=== PATIENT | male | born 1975 | race Hispanic/Latino ===

== ENCOUNTER 2025-03-13 21:14 | Emergency (ER) | payer OTHER ==
[~2025-03-13] VITALS: Ht 170.2 cm; Wt 86.6 kg
--- NOTE | 2025-03-13 21:18 | ERN ---
ED Note History of Present Illness Stated Complaint: HIGH BLOOD SUGAR Chief Complaint: Hyperglycemia Time Seen by MD: 21:16 Time Seen by Midlevel: 21:16 Dictation: Mr. Vizcarra is a 49-year-old gentleman with history of type 2 diabetes who presented to the emergency department this evening for evaluation of hyperglycemia. He states that he has been inconsistent with his medications (metformin 500 twice daily) and he checked his blood sugar and it was 400. He reports non adherence to diabetic diet during the holiday season. He states he is not sure how accurate this reading is because it is an old machine/old strips. He reports a few episodes of loose stools. He denies fever, chills, shortness of breath, cough, chest pain, palpitations, edema, abdominal pain, nausea, vomiting, hematemesis, constipation, melena, hematochezia, dysuria, headache, dizziness, or focal weakness/paresthesia differential includes uncontrolled hyperglycemia due to medication non adherence and dietary indiscretion versus metabolic complications of diabetes, including DKA or HHS, which are being evaluated. 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 EYES: Patient denies any visual symptoms. EARS, NOSE, AND THROAT: No difficulties with hearing. No symptoms of rhinitis or sore throat. CARDIOVASCULAR: Patient denies chest pains, palpitations, orthopnea and paroxysmal nocturnal dyspnea. RESPIRATORY: No dyspnea on exertion, no wheezing or cough. GI: No nausea, vomiting, diarrhea, constipation, abdominal pain, hematochezia or melena. : No urinary hesitancy or dribbling. No nocturia or urinary frequency. No abnormal urethral discharge. MUSCULOSKELETAL: No myalgias or arthralgias. NEUROLOGIC: No chronic headaches, no seizures. Patient denies numbness, tingling or weakness. PSYCHIATRIC: Patient denies problems with mood disturbance. No problems with anxiety. ENDOCRINE: Reports elevated blood glucose readings greater than 400. Reports inconsistent use of metformin. DERMATOLOGIC: Patient denies any rashes or skin changes. Initial Vital Sign VS Vital Signs Date Time Temp Pulse Resp B/P (MAP) Pulse Ox O2 Delivery O2 Flow Rate FiO2 03/13/25 21:16 98.1 109 20 145/96 98 Room Air 03/13/25 22:30 0 21 Physical Exam Dictation Vital signs: Reviewed. Afebrile Constitutional: No acute distress. Non-toxic appearing. Pleasant Head/Face: Normocephalic, atraumatic. Eyes: Periorbital areas with no swelling, redness, or edema. Lids and lashes are normal. Conjunctival injection is absent. Sclera anicteric. Pupils equal, round, reactive to light. ENT: Pinnas intact and no signs of trauma or erythema. Ear canals clear and no discharge. TMs no erythema. No nasal discharge or bleeding noted. Oropharynx with no exudate, redness, swelling, masses, exudates, or evidence of obstruction. Uvula midline. Mucous membranes slightly dry Neck: Trachea midline, no masses palpated, and no cervical lymphadenopathy. No swelling. Supple, full range of motion. Chest/Axilla: No tenderness, no crepitus, no paradoxical movement, no retractions. Cardiovascular: Regular rate, regular rhythm, no murmur, no gallops. Symmetric pulses. No peripheral edema. Tachycardic with heart rate 109. BP 145/96 Respiratory: Respirations even and unlabored. Lung sounds clear; no wheezes, rales or rhonchi. Room air SpO2 100% Gastrointestinal: Inspection is normal. No distention is appreciated. Bowel sounds are normal. No mass or organomegaly . There is no tenderness. No rebound. No rigidity. No voluntary or involuntary guarding. No Maynard's sign. Neurological: Normal speech, gross motor function intact, gross sensory function intact. No focal weakness/Paresthesia. Musculoskeletal/Extremities: All extremities have full range of motion, no pain or tenderness on palpation. Symmetric pulses. Integumentary: Intact. Skin is normal color, warm and dry. Cap refill less than 3 seconds. Results (Laboratory/Radiology) Laboratory/Radiology Laboratory Tests Test 03/13/25 21:17 03/13/25 21:25 03/13/25 21:45 Whole Blood Glucose 398 MG/DL (70-110) H White Blood Count 9.3 K/uL (4.8-10.8) Red Blood Count 5.32 MIL/uL (4.50-6.20) Hemoglobin 15.7 g/dL (14.0-18.0) Hematocrit 45.2 % (42-54) Mean Corpuscular Volume 85.0 fL (79-99) Mean Corpuscular Hemoglobin 29.5 pg (27.0-33.0) Mean Corpuscular Hemoglobin Concent 34.7 g/dL (32.0-36.0) Red Cell Distribution Width 11.6 % (11.0-15.5) Platelet Count 271 K/uL (130-400) Mean Platelet Volume 9.7 fL (7.5-10.5) Nucleated Red Blood Cells 0.0 % (0.0-0.19) Sodium Level 134 mmol/L (136-145) L Potassium Level 3.6 mmol/L (3.5-5.1) Chloride Level 100 mmol/L (101-111) L Carbon Dioxide Level 27 mmol/L (21-32) Blood Urea Nitrogen 16 mg/dL (7-18) Creatinine 1.2 mg/dL (0.5-1.3) Glomerular Filtration Rate Calc 75 mL/min (>90) Random Glucose 373 mg/dL (70-105) H Whole Blood Ketones Quantitative 0.3 mmol/L (0.0-0.6) Total Calcium 8.5 mg/dL (8.5-10.1) Urine Color COLORLESS (YELLOW) Urine Appearance CLEAR (CLEAR) Urine pH 6.0 (5.0-8.0) Urine Specific [place] 1.029 (1.001-1.031) Urine Protein NEGATIVE mg/dL (NEGATIVE) Urine Glucose (UA) >=1000 mg/dL (NEGATIVE) H Urine Ketones NEGATIVE mg/dL (NEGATIVE) Urine Occult Blood NEGATIVE (NEGATIVE) Urine Nitrate NEGATIVE (NEGATIVE) Urine Bilirubin NEGATIVE mg/dL (NEGATIVE) Urine Urobilinogen 0.2 mg/dL (0.2-1.0) Urine Leukocyte Esterase NEGATIVE Louie/uL Urine RBC None /HPF (0-1) Urine WBC 0-1 /HPF (0-1) Urine Bacteria None /HPF (None Seen) Labs Reviewed?: Yes ED Course ED Course Orders Procedure Category Date Status Time Bedside Glucose CPOE 03/13/25 Transmitted Fingerstick 21:16 Cbc Without LAB 03/13/25 Complete Differential 21:19 Basic Metabolic Panel LAB 12/26/25 Complete 21:19 Ketone Blood LAB 03/13/25 Complete Quantitative 21:19 Urinalysis Profile LAB 03/13/25 Complete 21:19 0.9%Nacl 1000ml (Ns PHA 03/13/25 Complete 1000ml) 21:30 Current Medications Medications (Trade) Dose Ordered Sig/Shu Route PRN Reason Start Time Stop Time Status Last Admin Dose Admin Sodium Chloride 1,000 ml @ 0 mls/hr ONCE ONCE IV 03/13/25 21:30 03/13/25 21:31 DC 03/13/25 22:10 Vital Signs Date Time Temp Pulse Resp B/P (MAP) Pulse Ox O2 Delivery O2 Flow Rate FiO2 03/13/25 22:30 99.1 87 20 129/86 99 Room Air* 0 21 03/13/25 21:16 98.1 109 20 145/96 98 Room Air He is having with known type 2 diabetes presented with asymptomatic hyperglycemia in the setting of poor medication adherence and dietary indiscretion during the holidays. Patient reported inconsistent use of prescribed metformin and recent episodes of diarrhea. He denies fever chills, shortness of breath, chest pain, abdominal pain nausea or vomiting. Initial fi ngerstick was 398. Laboratory evaluating fan demonstrated serum glucose of 373, Na/Cl 134/100 and estimated GFR 75. There was no evidence of renal impairment. Serum ketones were negative. There was no leukocytosis and H&H were within normal limits. There was no evidence of DKA or HHS. Patient was treated with 1 L of IV NS, after which he remained hemodynamically stable and asymptomatic. Hyperglycemia was felt to be secondary to medication adherence and dietary factors, without evidence of acute metabolic complication. Given clinical stability, reassuring laboratory findings, and absence of mckeon doses or acidosis, inpatient admission was not indicated. The patient was counseled extensively on medication that your it is, dietary modification, and close outpatient follow up. Medical Decision Making MDM MDM: Differential diagnosis: Uncontrolled hyperglycemia due to medication nonadherence, hyperglycemia secondary to dietary excess, DKA, HHS, dehydration, electrolyte derangement Rationale: Tests considered and ordered secondary to shared decision making include: Accu-Chek, LAB Previous outside records reviewed: Old ER visits. Risk of complication and/or morbidity or mortality of patient management: None Medications-Per medication reconciliation Need for hospitalization: Patient does not meet criteria for hospitalization. Need for emergency major/minor surgery: No There are no social concerns with this patient. Prescription drug management: continue home dose Metformin Prescriptions will include symptomatic care Patient's prior external medical records from other ER visits were reviewed by me as indicated. Prior testing and results from previous visits were reviewed. Prior tests were taken into account with medical decision making and resource utilization, independent historian/historians were used to obtain complete medical history. I independently interpreted the test that were performed, results were reviewed by me and considered findings on radiology if ordered. Medical management and examination interpretation discussions were had by me with other qualified healthcare professionals as indicated for the patient's care. DX & DISP Disposition: Discharge Departure Impression: Primary Impression: Hyperglycemia due to type 2 diabetes mellitus Additional Impressions: Medication nonadherent, Dietary indiscretion Condition: Stable Additional Instructions: Blood sugar levels were elevated. There was no evidence of diabetic ketoacidosis or other emergency complications. Kidney function and blood counts were normal. You were treated with IV fluids for mild dehydration. Resume your metformin exactly as prescribed. Do not skip doses. Do not take extra doses to catch up . Check your blood glucose levels at least twice daily; fasting in the morning and before dinner or at bedtime. Keep a written log of your readings (date, time, value). Bring this log your follow up appointment at your PCP's office. Follow a diabetic friendly diet. Avoid sugary drinks, desires, and excess carbohydrates. Drink plenty of water limit alcohol intake. Follow up with your primary care provider within 1-3 days. Medication adjustments may be needed based on your glucose log. Return to the emergency department immediately if you develop persistent blood sugar readings greater than 400. Vomiting/inability to keep fluids down. Abdominal pain. Confusion/altered mental status. Chest pain/shortness of breath. Signs of dehydration (dry mouth, dizziness, decreased urination. High blood sugar can often be managed safely as an outpatient when caught early. Medication adherence and or critical to preventing complications. Time of Disposition: 22:10 ATTESTATION BY PHYSICIAN I PERFORMED THE SUBSTANTIVE PORTION OF THE VISIT. I HAVE REVIEWED AND PERSONALLY MADE AND APPROVED THE MANAGEMENT PLAN THAT IS DOCUMENTED IN THE NOTE BY MYSELF FOR THE A PP. MAURICE MARCH Mar 13, 2025 21:17 JONATHAN CRISOSTOMO MD Mar 16, 2025 20:02
--- NOTE | 2025-03-13 21:18 | NUR ---
UA CUP PROVIDED
[2025-03-13 21:42] LABS: NUCLEATED RED BLOOD CELLS 0.0 % (0.0-0.19); PLATELET COUNT (AUTO) 271.0 K/uL (130-400); RED BLOOD CELL COUNT(AUTO) 5.32 MIL/uL (4.50-6.20); RED CELL DISTRIBUTION WIDTH 11.6 % (11.0-15.5); WHITE BLOOD COUNT (AUTO) 9.3 K/uL (4.8-10.8)
[2025-03-13 22:00] LABS: CREATININE 1.2 mg/dL (0.5-1.3); GLOMERULAR FILTR. RATE CALC 75.0 mL/min (>90); GLUCOSE,RANDOM 373.0 mg/dL (70-105); SODIUM SERUM 134.0 mmol/L (136-145); UREA NITROGEN, BLOOD 16.0 mg/dL (7-18)
[2025-03-13] MEDS: 0.9%NACL 1000ML 1,000 ML IV ONE (22:10)
[2025-03-13 22:30] VITALS: BP 129/86; PULSE 87; RESP 20; TEMP 99.2; O2SAT 99
[2025-03-13 22:53] LABS: ADD UA MICROSCOPIC YES; APPEARANCE,URINE CLEAR (CLEAR); GLUCOSE, URINE (UA) >=1000 mg/dL (NEGATIVE); LEUKOCYTE ESTERASE ,URINE NEGATIVE Leu/uL (NEGATIVE); NITRATE,URINE NEGATIVE (NEGATIVE); OCCULT BLOOD,URINE NEGATIVE (NEGATIVE)
== END 2025-03-13 23:03 | disposition home or self-care (01) ==
LOC: EDH 21:14
DX: E11.65 Type 2 diabetes mellitus with hyperglycemia (principal); Z91.198 Patient's noncompliance with other medical treatment and regimen for other reason
CPT/HCPCS: 99283; 96360; 80048; 85027; 82948; 82010; 81001; 36415; J7030